=== PATIENT | male | born 1995 | race Caucasian/White ===

== ENCOUNTER 2021-01-30 03:13 | Emergency (ER) | payer SELFPAY ==
[~2021-01-30] VITALS: Ht 180.3 cm; Wt 116.8 kg
--- NOTE | 2021-01-30 03:27 | EKG ---
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
[2021-01-30] MEDS ORDERED: IV RINGERS SOLUTION,LACTATED 1,000 ML IV SCH (03:30)
[2021-01-30] MEDS ORDERED: ASPIRIN CHEWABLE 81 MG TABLET. PO ONE (03:30)
--- NOTE | 2021-01-30 03:40 | PHYS DOC ---
Past History Smoking: Cigarettes General Adult EDM: Chief Complaint: CHEST PAIN HPI: HPI: " I got severe chest pain about 10 to 15 minutes... Here the center my chest.... Seem worse with deep breath and movement.... Never had it before and it scared me.... I feel fine now... Patient is a 25 year old male who presents with above hx and complaints of sharp chest pain x 15 minutes. Patient currently denies any chest pain. Patient denies any previous coronary artery disease. Patient denies any history of DVT or PE. 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 Does not feel he overdid it or pulled a muscle. No history of fever or cough. No history of travel. No history of ill contacts. No history immunosuppression. Patient still smokes approximately a pack a day but attempting to reduce further from his 2 pack-a-day habit last year. Review of Systems: Review of Systems: Constitutional: Denies fever or chills Eyes: Denies change in visual acuity HENT: Denies nasal congestion or sore throat Respiratory: Denies cough or shortness of breath Cardiovascular: Complains of chest pain GI: Denies abdominal pain, nausea, vomiting, bloody stools or diarrhea : Denies dysuria Musculoskeletal: Denies back pain or joint pain Integument: Denies rash Neurologic: Denies headache, focal weakness or sensory changes Endocrine: Denies polyuria or polydipsia Lymphatic: Denies swollen glands Psychiatric: Denies depression or anxiety Family History: Family History: Noncontributory Current Medications: Current Meds: Current Medications Medications (Trade) Dose Ordered Sig/Anuja Start Time Stop Time Status Last Admin Dose Admin Aspirin (Aspirin Chewable) 324 mg 1X ONCE 01/30/21 03:30 01/30/21 03:31 DC Lactated Ringer's 1,000 ml @ 1,000 mls/hr Q1H 01/30/21 03:30 01/30/21 04:29 Allergies: Allergies: Allergies Coded Allergies Type Severity Reaction Last Updated Verified No Known Drug Allergies 01/30/21 No Physical Exam: PE: Constitutional: no acute distress, non-toxic appearance. [] HENT: Normocephalic, atraumatic, bilateral external ears normal, oropharynx moist, no oral exudates, nose normal. [] Eyes: PERRLA, EOMI, conjunctiva normal, no discharge. [] Neck: Normal range of motion, no tenderness, supple, no stridor. [] Cardiovascular:Heart rate regular rhythm, no murmur [] Lungs & Thorax: Bilateral breath sounds equal apex auscultation [] Abdomen: Bowel sounds normal, soft, no tenderness, no masses, no pulsatile masses. Obese. Skin: Warm, dry, no erythema, no rash. [] Back: No tenderness, no CVA tenderness. [] Extremities: No tenderness, no cyanosis, no clubbing, ROM intact, no edema. No cording Neurologic: Alert and oriented X 3, normal motor function, normal sensory function, no focal deficits noted. [] Psychologic: Affect anxious, judgement normal, mood normal. [] EKG: EKG: My interpretation EKG shows a sinus rhythm at 83 bpm. No findings of acute morphology. Essentially normal EKG. [] My interpretation of second EKG at 6:00 -shows no acute pathology sinus rhythm at 75. No acute change from prior EKG. Radiology/Procedures: Radiology/Procedures: [[address] [address] IMAGING REPORT Signed PATIENT: PIA COE ACCOUNT: [id number] : 1995 LOCATION: ER AGE: 25 SEX: M EXAM STATUS: REG ER ORD. PHYSICIAN: LORAINE MOTA MD REASON: OMNI 350, 100ML IV. Pleuretic cp PROCEDURE: CT ANGIOGRAPHY CHEST PQRS Compliance Statement: One or more of the following individualized dose reduction techniques were utilized for this examination: 1. Automated exposure control 2. Adjustment of the mA and/or kV according to patient size 3. Use of iterative reconstruction technique CT CHEST WITH CONTRAST, PULMONARY ANGIOGRAM History: Reason: Pleuretic cp / Comparison: None. Technique: Helical CT of the chest was performed after the administration of 100 cc of Omnipaque 350 intravenous contrast according to PE protocol. Axial and coronal reconstructions were obtained. 3-D MIP images were constructed to better evaluate the pulmonary arteries. Findings: Pulmonary arteries are adequately opacified. There is no evidence of pulmonary embolism. There is no thoracic aortic dissection. Visualized thyroid is symmetric. There is residual thymus in the anterior mediastinum, normal variant for a patient this age. The great vessels are normal caliber. Small calcified left hilar lymph node. There is no adenopathy in the chest. The cardiac size is normal, no pericardial effusion. There is no pleural effusion. The central airways are patent. There is no lung consolidation. The visualized upper abdomen is unremarkable. No acute bone abnormality. The thoracic spine alignment is maintained. IMPRESSION: 1. There is no pulmonary embolus. 2. No lung consolidation. Electronically signed by: Mk Lilly MD (01/30/2021 5:52 AM) [facility] DICTATED AND SIGNED BY: MK LILLY MD DATE: 01/30/21 0547 CC: LORAINE MOTA MD; PCP,NO ~MTH0 0 ][address] [place] [address] IMAGING REPORT Signed PATIENT: DORI SHANNON ACCOUNT: [id number] : 08/13/1958 LOCATION: ER AGE: 62 SEX: F EXAM STATUS: REG ER ORD. PHYSICIAN: LORAINE MOTA MD REASON: fever, copd PROCEDURE: CHEST PA & LATERAL XR CHEST 2V History: Reason: fever, copd / Comparison: Two-view chest June 12, 2019. Findings: The cardiomediastinal silhouette is normal. Interstitial opacities are nearly identical to the prior study and probably represent chronic interstitial changes. No acute airspace disease is identified. No pleural effusion or pneumothorax is seen. There is no acute bone abnormality. IMPRESSION: Probable chronic interstitial changes, stable to prior study. Electronically signed by: Mk Lilly MD (01/30/2021 4:04 AM) [facility] DI[facility]ATED AND SIGNED BY: MK LILLY MD DATE: 01/30/21 0403 CC: LORAINE MOTA MD; AUDRA MARIE PA ~MTH0 0 Heart Score: C/O Chest Pain: Yes HEART Score for Chest Pain: HEART Score for Chest Pain Response (Comments) Value History Slighlty/Non-Suspicious 0 ECG Normal 0 Age < 45 0 Risk Factors 1 or 2 Risk Factors 1 Troponin < Normal Limit 0 Total 1 Risk Factors: Risk Factors: DM, Current or recent (<one month) smoker, HTN, HLP, family history of CAD, obesity. Risk Scores: Score 0 - 3: 2.5% MACE over next 6 weeks - Discharge Home Score 4 - 6: 20.3% MACE over next 6 weeks - Admit for Clinical Observation Score 7 - 10: 72.7% MACE over next 6 weeks - Early Invasive Strategies Course & Med Decision Making: Course & Med Decision Making Pertinent Labs and Imaging studies reviewed. (See chart for details) Patient does take a daily aspirin. Patient follow-up primary care. Consider benefits and risk of a outpatient stress test. Return if any concerns. Follow- up primary care. Continue efforts to reduce smoking. Impression: 1. Chest wall pain 2. History of tobacco use [] Dragon Disclaimer: Dragon Disclaimer: This electronic medical record was generated, in whole or in part, using a voice recognition dictation system. Departure Departure: Referrals: PCP,NO (PCP) Dragon Disclaimer This chart was dictated in whole or in part using Voice Recognition software in a busy, high-work load, and often noisy Emergency Department environment. It may contain unintended and wholly unrecognized errors or omissions. Dragon Disclaimer This chart was dictated in whole or in part using Voice Recognition software in a busy, high-work load, and often noisy Emergency Department environment. It may contain unintended and wholly unrecognized errors or omissions. LORAINE MOTA MD Jan 30, 2021 03:40
[2021-01-30 04:03] LABS: BASO # 0.1 x10^3/uL (0.0-0.2); BASO % 1 % (0-3); EOS # 0.2 x10^3/uL (0.0-0.7); EOS % 2 % (0-3); HEMATOCRIT 46.5 % (39.0-53.0); HEMOGLOBIN 15.8 g/dL (13.0-17.5); LYMPH # 3.8 x10^3/uL (1.0-4.8); LYMPH % 41 % (24-48); MEAN CORPUSCULAR HEMOGLOBIN 30 pg (25-35); MEAN CORPUSCULAR HGB CONC 34 g/dL (31-37); MEAN CORPUSCULAR VOLUME 88 fL (79-100); MONO # 0.8 x10^3/uL (0.0-1.1); MONO % 8 % (0-9); NEUT # 4.4 x10^3uL (1.8-7.7); NEUT % 48 % (31-73); PLATELET COUNT 261 x10^3/uL (140-400); RED BLOOD COUNT 5.27 x10^6/uL (4.30-5.70); RED CELL DISTRIBUTION WIDTH 13.4 % (11.5-14.5); WHITE BLOOD COUNT 9.2 x10^3/uL (4.0-11.0)
[2021-01-30 04:10] LABS: CREATININE 0.9 mg/dL (0.7-1.3); GFR 103.7; POTASSIUM 3.6 mmol/L (3.5-5.1)
[2021-01-30 04:25] LABS: ALBUMIN 3.9 g/dL (3.4-5.0); DIRECT BILIRUBIN 0.1 mg/dL (0.0-0.2); MAGNESIUM 2.1 mg/dL (1.8-2.4); TOTAL BILIRUBIN 0.3 mg/dL (0.2-1.0); TOTAL PROTEIN 7.7 g/dL (6.4-8.2)
--- NOTE | 2021-01-30 04:28 | RAD ---
XR CHEST 2V History: Reason: cp / Comparison: None. Findings: The cardiomediastinal silhouette is normal. Pulmonary vasculature is normal. The lungs are clear. No pleural effusion or pneumothorax is seen. There is no acute bone abnormality. IMPRESSION: No acute cardiopulmonary process. Electronically signed by: Mk Lilly MD (01/30/2021 4:26 AM) [facility]
[2021-01-30 05:12] LABS: SEDIMENTATION RATE 5 (0-15)
[2021-01-30] MEDS ORDERED: IOHEXOL 350 MG/ML 100 ML VIAL. IV ONE (05:15)
[2021-01-30] MEDS ORDERED: CONTRAST GIVEN. MC PRN (05:15)
[2021-01-30 05:20] LABS: BILIRUBIN,URINE NEG (NEG); CLARITY,URINE CLEAR; COLOR,URINE YELLOW; GLUCOSE,URINE NEG (NEG)
[2021-01-30 05:21] LABS: AMORPHOUS SEDIMENT,UR PRESENT /HPF; BACTERIA,URINE 0 /HPF (0-FEW); NITRITE,URINE NEG (NEG); RBC,URINE 0 /HPF (0-2); SQUAMOUS EPITHELIAL CELL,UR OCC /LPF; UROBILINOGEN,URINE 0.2 mg/dL (0.2 mg/dL); WBC,URINE 0 /HPF (0-4)
[2021-01-30 05:25] LABS: BARBITURATES NEG (NEG); BENZODIAZEPINES NEG (NEG); CANNABINOIDS NEG (NEG); COCAINE NEG (NEG); METHADONE NEG (NEG); OPIATES NEG (NEG); PHENCYCLIDINE NEG (NEG)
[2021-01-30 05:26] LABS: AMPHETAMINE/METHAMPHETAMINE NEG (NEG)
--- NOTE | 2021-01-30 05:54 | RAD ---
PQRS Compliance Statement: One or more of the following individualized dose reduction techniques were utilized for this examinat ion: 1. Automated exposure control 2. Adjustment of the mA and/or kV according to patient size 3. Use of iterative reconstruction technique CT CHEST WITH CONTRAST, PULMONARY ANGIOGRAM History: Reason: Pleuretic cp / Comparison: None. Technique: Helical CT of the chest was performed after the administration of 100 cc of Omnipaque 350 intravenous contrast according to PE protocol. Axial and coronal reconstructions were obtained. 3- D MIP images were constructed to better evaluate the pulmonary arteries. Findings: Pulmonary arteries are adequately opacified. There is no evidence of pulmonary embolism. There is no thoracic aortic dissection. Visualized thyroid is symmetric. There is residual thymus in the anterior mediastinum, normal variant for a patient this age. The great vessels are normal caliber . Small calcified left hilar lymph node. There is no adenopathy in the chest. The cardiac size is nor mal, no pericardial effusion. There is no pleural effusion. The central airways are patent. There is no lung consolidation. The visualized upper abdomen is unremarkable. No acute bone abnormality. The thoracic spine alignment is maintained. IMPRESSION: 1. There is no pulmonary embolus. 2. No lung consolidation. Electronically signed by: Mk Lilly MD (01/30/2021 5:52 AM) [facility]
--- NOTE | 2021-01-30 06:06 | EKG ---
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
[2021-01-30 06:30] VITALS: BP 125/60
== END 2021-01-30 06:45 | disposition home or self-care (01) ==
LOC: ER 03:13
DX: R07.89 Other chest pain (principal); F17.210 Nicotine dependence, cigarettes, uncomplicated
CPT/HCPCS: 36415; 71046; 71275; 80048; 80076; 80307; 81001; 82550; 83690; 83735; 83880; 84443; 84484; 85025; 85379; 85610; 85651; 85730; 93005; 96360; 99285; J7120; Q9967